=== PATIENT | male | born 1950 | race Caucasian/White ===

== ENCOUNTER 2022-03-08 22:07 | Inpatient (IN) | payer MEDICARE, OTHER ==
[~2022-03-08] VITALS: Ht 175.3 cm; Wt 66.2 kg
--- NOTE | 2022-03-08 22:15 | NUR ---
[id number] FROM HOME C/O GLF WHILE BENDING OVER TO INVENTORY MANAGEMENT SPECIALIST DOG, -KO C/O ARIAN KNEE PAIN . PT AOX3. TOLERATING R/A WELL WITH NO RESP DISTRESS. SAFETY MEASURES IN PLACE. 1:1 SITTER AT PT'S BEDSIDE.
--- NOTE | 2022-03-08 23:01 | NUR ---
BS 118
[2022-03-08 23:04] LABS: BASOPHILS % (AUTO) 0.4 % (0.0-2.0); EOSINOPHILS % (AUTO) 0.6 % (0.0-6.0); HEMATOCRIT 39 % (39-51); HEMOGLOBIN 12.7 g/dL (13.5-17.5); LYMPHOCYTES # (AUTO) 0.4 K/uL (0.8-4.8); MEAN CORPUSCULAR HGB CONC 33 g/dl (31.0-36.0); MEAN CORPUSCULAR VOLUME 92 fL (80-96); MONOCYTES # (AUTO) 0.8 K/uL (0.1-1.30); MONOCYTES % (AUTO) 9.2 % (2.0-12.0); NEUTROPHILS # (AUTO) 7.4 K/uL (1.8-8.9); NEUTROPHILS % (AUTO) 84.8 % (43.0-81.0); PLATELET COUNT (AUTO) 216 K/uL (150-450); RED BLOOD CELL COUNT(AUTO) 4.26 MIL/uL (4.5-6.0); WHITE BLOOD COUNT (AUTO) 8.7 K/uL (4.3-11.0)
--- NOTE | 2022-03-08 23:04 | NUR ---
PT TAKEN TO CT VIA KYLE
[2022-03-08 23:17] LABS: CALCIUM, SERUM 8.5 mg/dL (8.5-10.1); CARBON DIOXIDE 24 mmol/L (21-32); CHLORIDE 109 mmol/L (98-107); CREATININE 1.8 mg/dL (0.6-1.3); GLUCOSE 114 mg/dL (74-106); POTASSIUM 3.5 mmol/L (3.5-5.1); SODIUM SERUM 143 mmol/L (136-145); UREA NITROGEN, BLOOD 17 mg/dL (7-18)
--- NOTE | 2022-03-08 23:25 | NUR ---
PT RETURNED TO ER BED [address]
--- NOTE | 2022-03-08 23:57 | NUR ---
IV ESTABLISHED LAC #18G S/L
--- NOTE | 2022-03-09 | NUR ---
COVID AND MRSA SWAB COLLECTED AND SENT TO LAB
--- NOTE | 2022-03-09 00:06 | NUR ---
URINE COLLECTED AND SENT TO LAB
[2022-03-09 00:26] LABS: BILIRUBIN,URINE SMALL (NEGATIVE); COLOR,URINE YELLOW (YELLOW); LEUKOCYTE ESTERASE ,URINE NEGATIVE (NEGATIVE); NITRITE, URINE NEGATIVE (NEGATIVE); PROTEIN,URINE 30 mg/dl (NEGATIVE); UGLUCOSE >=1000 mg/dL (NEGATIVE)
--- NOTE | 2022-03-09 02:06 | NUR ---
EPIC PANEL PAGED
[2022-03-09] MEDS ORDERED: FUROSEMIDE 40 MG/4 ML VIAL IV ONE (02:30)
[2022-03-09] MEDS ORDERED: FUROSEMIDE 40 MG/4 ML VIAL ONE (02:33)
--- NOTE | 2022-03-09 04:30 | NUR ---
300ML YELLOW URINE OUTPUT VIA URINAL
--- NOTE | 2022-03-09 07:20 | NUR ---
RECIVED PT FROM ERIKA VALVERDE PT AWAKE AND ALERT WATING FOR telmetry bed
[2022-03-09] MEDS ORDERED: ONDANSETRON HCL/PF 4 MG/2 ML VIAL IVP PRN (07:30)
[2022-03-09] MEDS ORDERED: ACETAMINOPHEN 325 MG TABLET PO PRN (07:30)
[2022-03-09 08:19] LABS: CALCIUM, SERUM 8.4 mg/dL (8.5-10.1); CREATININE 1.7 mg/dL (0.6-1.3); POTASSIUM 3.2 mmol/L (3.5-5.1)
--- NOTE | 2022-03-09 08:39 | NUR ---
LAB CALLED ELTON LARKIN RN AWARE
--- NOTE | 2022-03-09 10:31 | NUR ---
Resting and asleepy now no sob at this time
--- NOTE | 2022-03-09 11:00 | NUR ---
CALLED (RETA SNELL ) [phone]
[2022-03-09] MEDS ORDERED: AMIO200T5 PO (11:30)
[2022-03-09] MEDS ORDERED: BUPR-54 PO (11:30)
[2022-03-09] MEDS ORDERED: TAMS-12 PO (11:30)
[2022-03-09] MEDS ORDERED: VALS40TA12 PO (11:30)
[2022-03-09] MEDS ORDERED: DIGO125T PO (11:30)
[2022-03-09] MEDS ORDERED: DAPA10TA PO (11:30)
[2022-03-09] MEDS ORDERED: SACU1TAB MT (11:30)
[2022-03-09] MEDS ORDERED: ATOR40TA PO (11:30)
[2022-03-09] MEDS ORDERED: WARF4TAB72 PO (11:30)
[2022-03-09] MEDS ORDERED: FURO40TA5 PO (11:30)
[2022-03-09] MEDS ORDERED: MIRT45TA83 PO (11:30)
[2022-03-09] MEDS ORDERED: CARV3.122 PO (11:30)
[2022-03-09] MEDS ORDERED: OLAN10TA3 PO (11:30)
[2022-03-09] MEDS ORDERED: LEVO112T7 PO (11:30)
[2022-03-09] MEDS ORDERED: MECL-159 PO (11:30)
[2022-03-09] MEDS: POTASSIUM CHLORIDE 10 MEQ TABLET.SA PO SCH ×3 (11:39→14:02)
[2022-03-09] MEDS ORDERED: POTASSIUM CHLORIDE 10 MEQ TABLET.SA ONE ×3 (11:39→14:01)
--- NOTE | 2022-03-09 12:20 | NUR ---
ECCHO CARDIOGAM DONE AT BED SIDE TOLORATED PROCEDURE WILL
--- NOTE | 2022-03-09 12:55 | NUR ---
CALLED PT WITH [facility] FOR RSV
--- NOTE | 2022-03-09 13:48 | NUR ---
RM 328-1
--- NOTE | 2022-03-09 14:35 | NUR ---
HAND OFF GENA Poon RN TO ROOM 328 - 1
--- NOTE | 2022-03-09 14:55 | NUR ---
LOCOMOTIVE OPERATOR HELPER ADMISSION NOTE RECEIVED PATIENT IN ROOM 304-2 FROM ER. PT ADMITTED WITH DIAGNOSTIC OF NSTEMI. PT A/O X 4, ABLE TO MAKE NEEDS KNOWN. ABLE TO AMBULATE TO BATHROOM WITH ASSIST. NO S/S OF RESPIRATORY DISTRESS NOTED. RESPIRATIONS EVEN, AND UNLABORED. NO C/O PAIN OR DISCOMFORT. VS STABLE. PT HAS IV ACCESS TO LEFT AC 18G, IV ACCESS PATENT. ADMISSION COMPLETED. WILL CONTINUE TO MONITOR PT.
--- NOTE | 2022-03-09 14:55 | NUR ---
DENTAL ASSISTING INSTRUCTOR NOTES RECEIVED PT FROM E.R. STAFF VIA [facility], PT IS AWAKE, ALERT AND ORIENTED, NO COMPLAINT OF PAIN, NOT IN DISTRESS, ABLE TO WALK FROM [facility] TO BED WITH SLOW AND STEADY GAIT, ROOM SET UP ORIENTATION PROVIDED TO PT, VERBALIZED UNDERSTANDING, CALL LIGHT PLACED WITHIN REACH, ADMITTING ORDERS RECEIVED FROM MD, VITALS TAKEN AND RECORDED, KEPT WARM AND COMFORTABLE.
[2022-03-09] MEDS ORDERED: POTASSIUM CHLORIDE 20 MEQ TAB.PRT.SR PO ONE (15:00)
[2022-03-09 16:00] VITALS: BP 92/60
[2022-03-09] MEDS: IV NS 0.9% 1,000 ML IV PRN (18:13)
--- NOTE | 2022-03-09 18:57 | NUR ---
PROJ MGR CLOSING NOTE LEFT PATIENT SLEEPING IN BED. PT A/O X 4, ABLE TO MAKE NEEDS KNOWN. NO S/S OF RESPIRATORY DISTRESS SEEN. RESPIRATIONS EVEN, AND UNLABORED. NO C/O PAIN OR DISCOMFORT AT THIS TIME. VS STABLE. IV ACCESS TO LEFT AC 18G RUNNING NS AT 75 ML/HR, IV ACCESS PATENT, NO S/S OF INFILTRATION, OR INFECTION AT IV SITE. PT ON TELE MONITOR SR. BED IN LOW POSITION, CALL LIGHT WITHIN REACH. WILL ENDORSE PT'S CARE TO ONCOMING NURSE.
--- NOTE | 2022-03-09 19:30 | NUR ---
POLYSTYRENE BEAD MOLDER OPENING NOTE PATIENT SLEEPING IN BED, EASILY AWAKENED, ALERT/ORIENTED X 4, PT ABLE TO MAKE NEEDS KNOWN. PT STABLE ON RA, NO S/S OF DISTRESS OR SOB NOTED, BREATHING EVEN AND UNLABORED. IV ACCESS ON LAC #18G INTACT AND INFUSING NS @ 75 ML/HR. SAFETY MEASURES IN PLACE: CALL LIGHT WITHIN REACH, SIDE RAILS UP X 2, BED LOCKED IN LOWEST POSITION, BED ALARM ON. WILL CONTINUE TO MONITOR PATIENT Addendum: 03/09/22 at 2054 by NATHALY SHAW RN PATIENT ON EXTERNAL MOLD CONSTRUCTION SUPERVISOR READING V-PACING, HR: 60
[2022-03-09 20:00] VITALS: BP 96/56
[2022-03-10 00:05] VITALS: BP 102/55
[2022-03-10 06:25] VITALS: BP 99/50
[2022-03-10 06:25] LABS: CALCIUM, SERUM 8.2 mg/dL (8.5-10.1); CREATININE 1.7 mg/dL (0.6-1.3); MAGNESIUM 2.2 mg/dL (1.8-2.4); PHOSPHORUS 2.6 mg/dL (2.5-4.9); POTASSIUM 3.3 mmol/L (3.5-5.1)
--- NOTE | 2022-03-10 06:29 | NUR ---
KEYLINER CLOSING NOTE PATIENT SLEEPING IN BED, EASILY AWAKENED, ALERT/ORIENTED X 4, PT ABLE TO MAKE NEEDS KNOWN, PT VERY SLEEPY THROUGHOUT SHIFT. PT STABLE ON RA, NO S/S OF DISTRESS OR SOB NOTED, BREATHING EVEN AND UNLABORED. PATIENT ON EXTERNAL SHREDDING MACHINE KNIFE CHANGER READING AV PACING, HR: 64. IV ACCESS ON LAC #18G INTACT AND INFUSING NS @ 75 ML/HR. PATIENT NEEDS MET THROUGHOUT SHIFT. SAFETY MEASURES IN PLACE: CALL LIGHT WITHIN REACH, SIDE RAILS UP X 2, BED LOCKED IN LOWEST POSITION, BED ALARM ON. WILL ENDORSE TO DAYSHIFT NURSE FOR CONTINUITY OF CARE
[2022-03-10 07:12] LABS: BASOPHILS % (AUTO) 0.6 % (0.0-2.0); EOSINOPHILS % (AUTO) 3.3 % (0.0-6.0); HEMATOCRIT 35 % (39-51); HEMOGLOBIN 11.6 g/dL (13.5-17.5); LYMPHOCYTES # (AUTO) 1.1 K/uL (0.8-4.8); LYMPHOCYTES % (AUTO) 15.8 % (20.0-44.0); MEAN CORPUSCULAR HGB CONC 33 g/dl (31.0-36.0); MEAN CORPUSCULAR VOLUME 92 fL (80-96); MONOCYTES # (AUTO) 0.9 K/uL (0.1-1.30); NEUTROPHILS # (AUTO) 4.4 K/uL (1.8-8.9); NEUTROPHILS % (AUTO) 66.3 % (43.0-81.0); PLATELET COUNT (AUTO) 185 K/uL (150-450); RED BLOOD CELL COUNT(AUTO) 3.84 MIL/uL (4.5-6.0); WHITE BLOOD COUNT (AUTO) 6.7 K/uL (4.3-11.0)
[2022-03-10] MEDS: IV NS 0.9% 1,000 ML IV PRN (07:12)
--- NOTE | 2022-03-10 07:25 | NUR ---
RN OPENING NOTE RECEIVED PT IN BED AWAKE AND ALERT. A.OX4. CALM AND COOPERATIVE. NO SIGNS OF RESPIRATORY DISTRESS OR SOB NOTED. SATURATING WELL ON RA. TELE READING AV-PACING AT 60. LAC 18 G DISLODGED. NEW IV TO BE INSERTED. SAFETY MEASURES: BED LOCKED AND IN LOWEST POSITION, CALL LIGHT WITHIN REACH. WILL CONTINUE TO MONITOR.
[2022-03-10] MEDS ORDERED: POTASSIUM CHLORIDE 20 MEQ TAB.PRT.SR PO ONE (08:30)
--- NOTE | 2022-03-10 08:30 | NUR ---
RN NOTE IV IN LEFT AC DISLODGED. NEW IV INSERTED IN RIGHT FA 20G INTACT AND PATENT.
[2022-03-10] MEDS ORDERED: AMIO200T5 PO (13:02)
[2022-03-10 14:17] LABS: T4 (THYROXINE) 9.7 ug/dL (4.7-13.3); THYROID STIMULATING HORMONE 2.278 uIU/mL (0.358-3.74)
--- NOTE | 2022-03-10 16:27 | NUR ---
RN NOTE PT IS NOW DISCHARGED. TRANSPORTED TO HOME BY [facility]. CONDITION AT THE TIME OF DISCHARGE: STABLE. NO SIGNS OF RESPIRATORY DISTRESS OR SOB NOTED. DISCHARGE INSTRUCTIONS AND EDUCATION GIVEN. SIGNED AND DATED. PT VERBALIZED UNDERSTANDING OF CONTACTING PCP ONE WEEK AFTER DISCHARGE. IV REMOVED AND TELE BOX RETURNED TO STATION. PT STABLE.
== END 2022-03-10 16:30 | disposition home or self-care (01) | DRG 682 ==
LOC: ER 22:12 → TRANSITION 03-09 03:38 → MED 03-09 13:54 → TELE 03-09 14:56
PROVIDERS: ADMIT Nurse Practitioner Acute Care; ATTEND Nurse Practitioner Acute Care
DX: N17.0 Acute kidney failure with tubular necrosis (principal); I21.A1 Myocardial infarction type 2; I50.22 Chronic systolic (congestive) heart failure; Z95.3 Presence of xenogenic heart valve; I50.9 Heart failure, unspecified; Y92.009 Unspecified place in unspecified non-institutional (private) residence as the place of occurrence of the external cause; W18.30XA Fall on same level, unspecified, initial encounter; Z79.01 Long term (current) use of anticoagulants; Z95.810 Presence of automatic (implantable) cardiac defibrillator; Z95.1 Presence of aortocoronary bypass graft; J44.9 Chronic obstructive pulmonary disease, unspecified; I25.5 Ischemic cardiomyopathy; E87.6 Hypokalemia; D63.8 Anemia in other chronic diseases classified elsewhere; N18.9 Chronic kidney disease, unspecified
CPT/HCPCS: 36415; 70450-TC; 71045-TC; 72125-TC; 73564-TC; 80048-TC; 82962-TC; 83735-TC; 83880; 84100-TC; 84436-TC; 84443-TC; 84484-TC; 85025-TC; 85730-TC; 87081-TC; 93307-TC; 97116-TC; 97530-TC; C9803; G0378; J1940; J7030

== ENCOUNTER 2022-10-22 23:23 | Inpatient (IN) | payer MEDICARE, OTHER ==
[~2022-10-22] VITALS: Ht 175.3 cm; Wt 66.2 kg
[~2022-10-22 23:23] MED LIST: AMIO200T5 PO; ATOR40TA PO; BUPR-54 PO; CARV3.122 PO; DIGO125T PO; FURO40TA5 PO; LEVO112T7 PO; MECL-159 PO; MIRT45TA83 PO; OLAN10TA3 PO; SACU1TAB MT; TAMS-12 PO; WARF4TAB72 PO
[2022-10-22] MEDS ORDERED: IPRATROPIUM NEB FS 0.5 MG/2.5 ML AMPUL.NEB NEB ONE (23:30)
[2022-10-22] MEDS ORDERED: ALBUTEROL FS 2.5 MG/3 ML VIAL.NEB NEB ONE (23:30)
[2022-10-22] MEDS ORDERED: predniSONE 20 MG TABLET PO ONE (23:30)
--- NOTE | 2022-10-22 23:40 | NUR ---
BIB 90 FROM HOME WITH CC OF SOB, PT IS MAINTAINED ON 2LPM NC OXYGEN EVEN AT HOME. GOT UPSET WITH CG AND EXPERIENCING SOB. AO X 4, BREATHING UNLABORED. PT STATES IT IS HARD TO BREATHE. PT ATTACHED TO MONITOR AND PULSE OX. AWAITING MD ANDERS
[2022-10-22] MEDS ORDERED: predniSONE 20 MG TABLET ONE (23:42)
--- NOTE | 2022-10-22 23:45 | NUR ---
RT AT BEDSIDE
[2022-10-22] MEDS ORDERED: ALBUTEROL FS 2.5 MG/3 ML VIAL.NEB ONE (23:50)
[2022-10-22] MEDS ORDERED: IPRATROPIUM NEB FS 0.5 MG/2.5 ML AMPUL.NEB ONE (23:50)
[2022-10-23 00:01] LABS: HEMATOCRIT 36 % (39-51); HEMOGLOBIN 11.5 g/dL (13.5-17.5); WHITE BLOOD COUNT (AUTO) 8.1 K/uL (4.3-11.0)
[2022-10-23 00:11] LABS: BASOPHILS # (AUTO) 0.1 K/uL (0.0-0.2); BASOPHILS % (AUTO) 0.9 % (0.0-2.0); EOSINOPHILS % (AUTO) 3.6 % (0.0-6.0); LYMPHOCYTES # (AUTO) 1.6 K/uL (0.8-4.8); LYMPHOCYTES % (AUTO) 19.6 % (20.0-44.0); MEAN CORPUSCULAR HGB CONC 32 g/dl (31.0-36.0); MEAN CORPUSCULAR VOLUME 89 fL (80-96); MONOCYTES # (AUTO) 0.9 K/uL (0.1-1.30); MONOCYTES % (AUTO) 11.5 % (2.0-12.0); NEUTROPHILS # (AUTO) 5.2 K/uL (1.8-8.9); NEUTROPHILS % (AUTO) 64.4 % (43.0-81.0); PLATELET COUNT (AUTO) 298 K/uL (150-450); RED BLOOD CELL COUNT(AUTO) 3.97 MIL/uL (4.5-6.0)
[2022-10-23 00:20] LABS: CALCIUM, SERUM 8.6 mg/dL (8.5-10.1); CARBON DIOXIDE 23 mmol/L (21-32); CHLORIDE 110 mmol/L (98-107); CREATININE 1.6 mg/dL (0.6-1.3); GLUCOSE 101 mg/dL (74-106); POTASSIUM 4.1 mmol/L (3.5-5.1); SODIUM SERUM 142 mmol/L (136-145); UREA NITROGEN, BLOOD 24 mg/dL (7-18)
--- NOTE | 2022-10-23 00:20 | NUR ---
/ANISH [phone]
[2022-10-23] MEDS ORDERED: ASPIRIN 81 MG TAB.CHEW PO ONE (01:00)
[2022-10-23] MEDS ORDERED: FUROSEMIDE 40 MG/4 ML VIAL IV ONE (01:00)
[2022-10-23] MEDS ORDERED: ASPIRIN 81 MG TAB.CHEW ONE (01:23)
[2022-10-23] MEDS ORDERED: FUROSEMIDE 40 MG/4 ML VIAL ONE (01:23)
--- NOTE | 2022-10-23 02:31 | NUR ---
covid swab collected, sent to lab
[2022-10-23] MEDS ORDERED: ONDANSETRON HCL/PF 4 MG/2 ML VIAL IVP PRN (04:00)
[2022-10-23] MEDS ORDERED: ACETAMINOPHEN 325 MG TABLET PO PRN (04:00)
[2022-10-23 04:36] LABS: BASOPHILS # (AUTO) 0.1 K/uL (0.0-0.2); BASOPHILS % (AUTO) 1.5 % (0.0-2.0); EOSINOPHILS % (AUTO) 0.2 % (0.0-6.0); HEMATOCRIT 35 % (39-51); HEMOGLOBIN 11.2 g/dL (13.5-17.5); LYMPHOCYTES # (AUTO) 0.4 K/uL (0.8-4.8); LYMPHOCYTES % (AUTO) 5.5 % (20.0-44.0); MEAN CORPUSCULAR HGB CONC 33 g/dl (31.0-36.0); MEAN CORPUSCULAR VOLUME 89 fL (80-96); MONOCYTES # (AUTO) 0.1 K/uL (0.1-1.30); MONOCYTES % (AUTO) 1.3 % (2.0-12.0); NEUTROPHILS # (AUTO) 7.4 K/uL (1.8-8.9); NEUTROPHILS % (AUTO) 91.5 % (43.0-81.0); PLATELET COUNT (AUTO) 273 K/uL (150-450); RED BLOOD CELL COUNT(AUTO) 3.86 MIL/uL (4.5-6.0); WHITE BLOOD COUNT (AUTO) 8.1 K/uL (4.3-11.0)
[2022-10-23 04:45] LABS: CALCIUM, SERUM 8.7 mg/dL (8.5-10.1); CARBON DIOXIDE 21 mmol/L (21-32); CHLORIDE 107 mmol/L (98-107); CREATININE 1.7 mg/dL (0.6-1.3); GLUCOSE 136 mg/dL (74-106); MAGNESIUM 2.2 mg/dL (1.8-2.4); PHOSPHORUS 3.4 mg/dL (2.5-4.9); POTASSIUM 3.7 mmol/L (3.5-5.1); SODIUM SERUM 140 mmol/L (136-145); UREA NITROGEN, BLOOD 25 mg/dL (7-18)
[2022-10-23 04:49] LABS: CHOLESTEROL 192 mg/dL (<200); HDL CHOLESTEROL 52 mg/dL (40-60); LDL 137 mg/dL (0-99); TRIGLYCERIDES 75 mg/dL (30-150)
--- NOTE | 2022-10-23 05:00 | NUR ---
RECEIVED A CALL FROM HI (LAB) PT TROP 125. MADE AWARE
--- NOTE | 2022-10-23 08:18 | NUR ---
PT ENDORSED AND GIVEN REPORT TO FRANCK VALVERDE FOR CONTINUATION OF CARE.
--- NOTE | 2022-10-23 08:45 | NUR ---
moved to inpatient room safely per acls protocol
--- NOTE | 2022-10-23 08:45 | NUR ---
Patient transferred ot 324-1, all care endorsed to NICOLLE Smith
[2022-10-23] MEDS ORDERED: ENOXAPARIN SODIUM 40 MG/0.4 ML DISP.SYRIN SQ SCH (09:00)
[2022-10-23] MEDS ORDERED: DAPA10TA PO (09:42)
[2022-10-23] MEDS ORDERED: FURO-144 PO (09:42)
[2022-10-23] MEDS ORDERED: AMIO200T5 PO (09:42)
[2022-10-23] MEDS ORDERED: LOSA50TA3 PO (09:42)
[2022-10-23] MEDS ORDERED: MULT-447 PO (09:42)
[2022-10-23] MEDS ORDERED: FINA5TAB11 PO (09:42)
[2022-10-23 10:55] VITALS: BP 116/72
[2022-10-23 11:25] VITALS: BP 88/46
[2022-10-23] MEDS ORDERED: MECLIZINE HCL 25 MG TABLET PO PRN (15:00)
[2022-10-23 15:48] VITALS: BP 94/48
[2022-10-23] MEDS: AMIODARONE HCL 200 MG TABLET PO SCH (17:00)
[2022-10-23] MEDS ORDERED: WARFARIN SODIUM 5 MG PO SCH (17:00)
[2022-10-23] MEDS: ATORVASTATIN 40 MG TABLET PO SCH (17:30)
[2022-10-23] MEDS ORDERED: FUROSEMIDE 20 MG/2 ML VIAL IV SCH (17:30)
[2022-10-23] MEDS: OLANZAPINE 10 MG TABLET PO SCH (17:30)
--- NOTE | 2022-10-23 17:31 | NUR ---
HELD AMIODARIONE. BP 94/48
--- NOTE | 2022-10-23 17:32 | NUR ---
PER PT HIS EX IS ABLE TO BRING HIS HOME MED FARXIGA 10 MG TODAY.
[2022-10-23] MEDS ORDERED: DEXTROSE 50%-WATER 50 ML DISP.SYRIN IV PRN (18:00)
--- NOTE | 2022-10-23 18:26 | NUR ---
END OF SHIFT SUMMARY PATIENT IS A/O X4. AMBULATORY WITH ASSIST. ABLE TO MAKE NEEDS KNOWN. IV ACCESS ON L AC #20G. INDEPENDENT WITH REPOSITIONING. PATIENT IS TOLERATING DIET WELL. SOCIAL SERVICE HAS BEEN CONSULTED. SAFETY MEASURES MAINTAINED. BED IN LOWEST POSITION, BRAKES LOCKED. SIDE RAILS UP X2. CALL LIGHT WITHIN REACH. WILL ENDORSE CONTINUITY OF CARE TO ONCOMING SHIFT.
[2022-10-23] MEDS: CEFTRIAXONE 1 G in IV D5W 50 ML IV SCH (18:42)
--- NOTE | 2022-10-23 19:30 | NUR ---
FOREIGN LAW CONSULTANT OPENING NOTES RECEIVED PT RESTING IN BED, EASILY AROUSABLE. A/O X4, ABLE TO MAKE NEEDS KNOWN, AMBULATORY WITH ASSIST. ON O2 2L VIA NC WITH NO S/S OF SOB OR DISTRESS. IV ACCESS ON LAC #20G SL, PATENT, INTACT, FLUSHING WELL. SAFETY MEASURES IN PLACE: BED LOCKED AND IN LOWEST POSITION, SIDE RAILS UP X3, BED ALARM ON, CALL LIGHT AND TRAY TABLE WITHIN REACH. WILL CONTINUE TO MONITOR AND ASSIST. Addendum: 10/23/22 at 195 by BARTOLO DEL TORO RN ON TELE MONITOR SHOWING SR A-PACING, 60 HR.
--- NOTE | 2022-10-23 19:47 | NUR ---
RN NOTE CRITICAL LAB REPORT: TROPONIN 96. TEE VALERIO NOTIFIED, NO NEW ORDERS.
[2022-10-23 20:00] VITALS: BP 100/55
[2022-10-23] MEDS: IPRATROPIUM NEB FS 0.5 MG/2.5 ML AMPUL.NEB NEB SCH (20:16)
[2022-10-23] MEDS: ALBUTEROL HALF STRENGTH 1.25 MG/3 ML VIAL.NEB NEB SCH (20:17)
--- NOTE | 2022-10-23 22:10 | NUR ---
RN NOTE PT VERBALIZED THAT HE ONLY WANTS MEDICAL INFORMATION TO BE GIVEN TO HIS EX (ANISH, ) AND NOBODY ELSE, ESPECIALLY NOT TO ROXANN.
[2022-10-23] MEDS: INSULIN REGULAR, HUMAN 100 UNIT/ML 3 ML VIAL SQ PRN (22:22)
[2022-10-23] MEDS: BLOOD SUGAR DIAGNOSTIC 1 EACH STRIP IN SCH (22:22)
[2022-10-23] MEDS: MIRTAZAPINE 45 MG TABLET PO SCH (22:22)
[2022-10-24] VITALS: BP 102/55
[2022-10-24] MEDS: IPRATROPIUM NEB FS 0.5 MG/2.5 ML AMPUL.NEB NEB SCH ×4 (02:22→19:42)
[2022-10-24] MEDS: ALBUTEROL HALF STRENGTH 1.25 MG/3 ML VIAL.NEB NEB SCH ×4 (02:22→19:42)
[2022-10-24 04:00] VITALS: BP 96/47
--- NOTE | 2022-10-24 04:17 | NUR ---
RN NOTE CRITICAL LAB REPORT: TROPONIN 111. TEE VALERIO NOTIFIED, AWAITING ORDERS.
[2022-10-24 04:32] LABS: BILIRUBIN,URINE NEGATIVE (NEGATIVE); COLOR,URINE YELLOW (YELLOW); LEUKOCYTE ESTERASE ,URINE NEGATIVE (NEGATIVE); NITRITE, URINE NEGATIVE (NEGATIVE); PROTEIN,URINE TRACE mg/dl (NEGATIVE); UGLUCOSE 3+ mg/dL (NEGATIVE)
[2022-10-24 04:38] LABS: BACTERIA,URINE Rare /HPF (None Seen); RBC,URINE 0-2 /HPF (0-2); SQUAMOUS EPITHELIAL CELL,UR Few /HPF (None Seen); WBC,URINE 0-2 /HPF (0-3)
[2022-10-24 06:19] LABS: BASOPHILS # (AUTO) 0.1 K/uL (0.0-0.2); BASOPHILS % (AUTO) 0.7 % (0.0-2.0); EOSINOPHILS % (AUTO) 1.8 % (0.0-6.0); HEMATOCRIT 31 % (39-51); HEMOGLOBIN 10.1 g/dL (13.5-17.5); LYMPHOCYTES # (AUTO) 1.5 K/uL (0.8-4.8); LYMPHOCYTES % (AUTO) 18.6 % (20.0-44.0); MEAN CORPUSCULAR HGB CONC 33 g/dl (31.0-36.0); MEAN CORPUSCULAR VOLUME 88 fL (80-96); MONOCYTES # (AUTO) 0.7 K/uL (0.1-1.30); MONOCYTES % (AUTO) 8.2 % (2.0-12.0); NEUTROPHILS # (AUTO) 5.7 K/uL (1.8-8.9); NEUTROPHILS % (AUTO) 70.7 % (43.0-81.0); PLATELET COUNT (AUTO) 257 K/uL (150-450); RED BLOOD CELL COUNT(AUTO) 3.52 MIL/uL (4.5-6.0)
[2022-10-24] MEDS: BLOOD SUGAR DIAGNOSTIC 1 EACH STRIP IN SCH ×3 (06:30→17:09)
[2022-10-24] MEDS: INSULIN REGULAR, HUMAN 100 UNIT/ML 3 ML VIAL SQ PRN (06:30)
--- NOTE | 2022-10-24 06:57 | NUR ---
ROUTE SALES DELIVERY DRIVERS SUPERVISOR CLOSING NOTES PT RESTING IN BED, EASILY AROUSED. A/O X4, ABLE TO MAKE NEEDS KNOWN, AMBULATORY WITH ASSIST. STABLE ON O2 2L VIA NC WITH NO S/S OF SOB OR DISTRESS.ON TELE MONITOR SHOWING V-PACING WITH BBB, 60 HR. IV ACCESS ON LAC #20G SL, PATENT, INTACT, FLUSHING WELL. ALL CARE PROVIDED AND MEDS TOLERATED WELL. SAFETY MEASURES MAINTAINED: BED LOCKED AND IN LOWEST POSITION, SIDE RAILS UP X3, BED ALARM ON, CALL LIGHT AND TRAY TABLE WITHIN REACH. WILL ENDORSE MARGARITO TO DAY SHIFT NURSE.
[2022-10-24 07:00] VITALS: BP 129/65
[2022-10-24 07:05] LABS: CALCIUM, SERUM 8.6 mg/dL (8.5-10.1); CARBON DIOXIDE 23 mmol/L (21-32); CHLORIDE 109 mmol/L (98-107); CREATININE 1.8 mg/dL (0.6-1.3); GLUCOSE 102 mg/dL (74-106); POTASSIUM 3.6 mmol/L (3.5-5.1); SODIUM SERUM 141 mmol/L (136-145); UREA NITROGEN, BLOOD 29 mg/dL (7-18)
--- NOTE | 2022-10-24 07:20 | NUR ---
MOLECULAR BIOLOGY DIRECTOR OPENING NOTES RECEIVED PT ASLEEP IN BED, EASY AROUSABLE. A/O X4, ABLE TO MAKE NEEDS KNOWN. ON O2 INHALATION AT 2L VIA NC, TOLERATING WELL AND SATURATING AT 96%. NO SOB NOTED, BREATHING EVEN AND UNLABORED. NO SIGNS OF ACUTE DISTRESS NOTED. DENIES ANY PAIN AT THIS TIME. ON TELE MONITORING READING VPACING WITH BBB, HR:62. WITH IV ACCESS ON LAC #20G-SALINE LOCKED. SAFETY MEASURES IN PLACE: BED IN LOW AND LOCKED POSITION; SIDE RAILS UP X2, CALL LIGHT WITHIN REACH. WILL CONTINUE TO MONITOR THE PATIENT.
[2022-10-24] MEDS: LEVOTHYROXINE SODIUM 112 MCG TABLET PO SCH (08:15)
[2022-10-24] MEDS: CARVEDILOL 3.125 MG TABLET PO SCH (08:43)
[2022-10-24] MEDS: MULTIVIT W/MINERALS 1 TAB TABLET PO SCH (08:43)
[2022-10-24] MEDS: FINASTERIDE (5 MG) 5 MG TABLET PO SCH (08:43)
[2022-10-24] MEDS: TAMSULOSIN 0.4 MG CAP.SR.24H PO SCH (08:44)
[2022-10-24] MEDS: DIGOXIN 0.125 MG TABLET PO SCH (08:44)
[2022-10-24] MEDS: AMIODARONE HCL 200 MG TABLET PO SCH ×2 (08:44→18:34)
[2022-10-24] MEDS: BUPROPION XL 150 MG TAB.ER.24 PO SCH (08:44)
[2022-10-24] MEDS: DAPAGLIFLOZIN PROPANEDIOL 10 MG PO SCH (08:51)
[2022-10-24] MEDS ORDERED: LOSARTAN POTASSIUM 50 MG TABLET PO SCH (09:00)
[2022-10-24] MEDS: FUROSEMIDE 100 MG/10 ML VIAL IV SCH ×3 (10:41→17:57)
[2022-10-24] MEDS: POTASSIUM CHLORIDE 20 MEQ TAB.PRT.SR PO SCH ×3 (10:42→14:16)
[2022-10-24] MEDS: ENOXAPARIN SODIUM 60 MG/0.6 ML DISP.SYRIN SQ SCH ×2 (10:46→22:26)
[2022-10-24 10:56] LABS: THYROID STIMULATING HORMONE 2.123 uIU/mL (0.358-3.74)
--- NOTE | 2022-10-24 11:23 | NUR ---
PREFITTER DOORS NOTE [employer] NURSE CHECKED PATIENT'S ICD AND SAID IT IS WORKING FINE AND THAT NO ADJUSTMENT NEEDED AND THAT SHE WEILL SEND RESULTS TO DR. PELAYO
--- NOTE | 2022-10-24 11:30 | NUR ---
BIOLOGICS SPECIALIST SEEN BY HOSPITALIST DELFIN ROBLES.
[2022-10-24 12:21] VITALS: BP 114/60
[2022-10-24] MEDS ORDERED: POTASSIUM CHLORIDE 20 MEQ TAB.PRT.SR PO SCH (14:00)
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
--- NOTE | 2022-10-24 17:55 | NUR ---
UPPER MARKER PATIENT'S BLOOD PRESSURE IS 89/56. HOLD FUROSEMIDE(LASIX) PER HOSPITALIST DELFIN ROBLES.
[2022-10-24] MEDS: CEFTRIAXONE 1 G in IV D5W 50 ML IV SCH (18:02)
[2022-10-24] MEDS: OLANZAPINE 10 MG TABLET PO SCH (18:02)
[2022-10-24] MEDS: ATORVASTATIN 40 MG TABLET PO SCH (18:03)
[2022-10-24] MEDS: WARFARIN SODIUM 2.5 MG TABLET PO SCH (18:37)
[2022-10-24] MEDS: WARFARIN SODIUM 1 MG TABLET PO SCH (18:38)
[2022-10-24] MEDS: WARFARIN SODIUM 2 MG TABLET PO SCH (18:39)
--- NOTE | 2022-10-24 19:09 | NUR ---
[employer] SALES REPRESENTATIVE CLOSING NOTES PATIENT ASLEEP IN BED, EASY AROUSABLE. A/O X4, ABLE TO MAKE NEEDS KNOWN. ON O2 INHALATION AT 2L VIA NC, TOLERATING WELL AND SATURATING AT 94%. NO SOB NOTED, BREATHING EVEN AND UNLABORED. NO SIGNS OF ACUTE DISTRESS NOTED. DENIES ANY PAIN AT THIS TIME. ON TELE MONITORING READING VPACING WITH BBB, HR:77. WITH IV ACCESS ON LAC #20G-SALINE LOCKED, PATENT AND INTACT. ALL DUE MEDS GIVEN. ALL NEEDS ATTENDED. SAFETY MEASURES MAINTAINED; BED IN LOW AND LOCKED POSITION; SIDE RAILS UP X2, CALL LIGHT AND TABLE WITHIN REACH. WILL ENDORSE TO ADVENTURE GUIDE NURSE FOR CONTINUITY OF CARE.
--- NOTE | 2022-10-24 19:15 | NUR ---
RN OPENING NOTE RECEIVED PATIENT ASLEEP IN BED BREATHING EVENLY AND UNLABORED. A/O X4, ABLE TO MAKE NEEDS KNOWN. ON O2 INHALATION AT 2L VIA NC, TOLERATING WELL AND SATURATING AT 94%. NO SOB NOTED. NO SIGNS OF ACUTE DISTRESS NOTED. DENIES ANY PAIN AT THIS TIME. ON TELE MONITORING READING VPACING WITH BBB, HR:75. WITH IV ACCESS ON LAC #20G-SALINE LOCKED, PATENT AND INTACT. SAFETY MEASURES MAINTAINED; BED IN LOW AND LOCKED POSITION; SIDE RAILS UP X2, CALL LIGHT AND TABLE WITHIN REACH.
[2022-10-24 20:00] VITALS: BP 90/53
--- NOTE | 2022-10-24 20:12 | NUR ---
RN NOTE RECEIVED CALL FROM LAB TROPONIN IS 108. TEE VALERIO IS MADE AWARE. NO ORDERS.
--- NOTE | 2022-10-24 22:00 | NUR ---
RN NOTE BLOOD SUGAR CHECKED RESULT IS 85. LANTUS IS GIVEN. PATIENT IS ABLE TO EAT. SNACKS IS GIVEN PATIENT IS EATING
[2022-10-24] MEDS: MIRTAZAPINE 45 MG TABLET PO SCH (22:25)
[2022-10-24 22:26] VITALS: BP 90/53
[2022-10-25] VITALS: BP 106/64
[2022-10-25] MEDS: BLOOD SUGAR DIAGNOSTIC 1 EACH STRIP IN SCH ×5 (00:08→21:35)
[2022-10-25] MEDS: IPRATROPIUM NEB FS 0.5 MG/2.5 ML AMPUL.NEB NEB SCH ×4 (01:25→20:25)
[2022-10-25] MEDS: ALBUTEROL HALF STRENGTH 1.25 MG/3 ML VIAL.NEB NEB SCH ×4 (01:25→20:25)
[2022-10-25 04:00] VITALS: BP 93/52
[2022-10-25 06:19] LABS: ALANINE AMINOTRANSFERASE 27 U/L (12-78); ALBUMIN 3.1 g/dL (3.4-5.0); ALKALINE PHOSPHATASE 75 U/L (46-116); ASPARTATE AMINOTRANSFERASE 20 U/L (15-37); BILIRUBIN,TOTAL 0.4 mg/dL (0.2-1.0); CARBON DIOXIDE 24 mmol/L (21-32); CHLORIDE 105 mmol/L (98-107); GLUCOSE 92 mg/dL (74-106); MAGNESIUM 2.2 mg/dL (1.8-2.4); PHOSPHORUS 4.7 mg/dL (2.5-4.9); POTASSIUM 3.9 mmol/L (3.5-5.1); SODIUM SERUM 139 mmol/L (136-145); TOTAL PROTEIN, SERUM 6.7 g/dL (6.4-8.2); UREA NITROGEN, BLOOD 43 mg/dL (7-18)
--- NOTE | 2022-10-25 06:55 | NUR ---
RN CLOSING NOTE PATIENT ASLEEP IN BED BREATHING EVENLY AND UNLABORED. A/O X4, ABLE TO MAKE NEEDS KNOWN. ON O2 INHALATION AT 2L VIA NC, TOLERATING WELL AND SATURATING AT 98%. NO SOB NOTED. NO SIGNS OF ACUTE DISTRESS NOTED. DENIES ANY PAIN AT THIS TIME. ON TELE MONITORING READING V PACING WITH BBB, HR:75. WITH IV ACCESS ON LAC #20G-SALINE LOCKED, PATENT AND INTACT. ALL DUE MEDICATION IS GIVEN, ALL NEEDS ARE MET. SAFETY MEASURES MAINTAINED; BED IN LOW AND LOCKED POSITION; SIDE RAILS UP X2, CALL LIGHT AND TABLE WITHIN REACH. ENDORSED TO NEXT SHIFT NURSE FOR CONTINUITY OF CARE.
[2022-10-25 07:04] LABS: BASOPHILS # (AUTO) 0.1 K/uL (0.0-0.2); BASOPHILS % (AUTO) 0.7 % (0.0-2.0); EOSINOPHILS % (AUTO) 4.1 % (0.0-6.0); HEMATOCRIT 36 % (39-51); HEMOGLOBIN 11.8 g/dL (13.5-17.5); LYMPHOCYTES # (AUTO) 1.9 K/uL (0.8-4.8); LYMPHOCYTES % (AUTO) 22.9 % (20.0-44.0); MEAN CORPUSCULAR HGB CONC 33 g/dl (31.0-36.0); MEAN CORPUSCULAR VOLUME 89 fL (80-96); MONOCYTES # (AUTO) 0.8 K/uL (0.1-1.30); MONOCYTES % (AUTO) 9.4 % (2.0-12.0); NEUTROPHILS # (AUTO) 5.1 K/uL (1.8-8.9); NEUTROPHILS % (AUTO) 62.9 % (43.0-81.0); PLATELET COUNT (AUTO) 287 K/uL (150-450); RED BLOOD CELL COUNT(AUTO) 4.07 MIL/uL (4.5-6.0); WHITE BLOOD COUNT (AUTO) 8.2 K/uL (4.3-11.0)
--- NOTE | 2022-10-25 07:15 | NUR ---
PUMPER BREWERY OPENING NOTES RECEIVED PT ASLEEP IN BED, EASY AROUSABLE. A/O X4, ABLE TO MAKE NEEDS KNOWN. ON O2 INHALATION AT 2L VIA NC, TOLERATING WELL AND SATURATING AT 98%. NO SOB NOTED, BREATHING EVEN AND UNLABORED. NO SIGNS OF ACUTE DISTRESS NOTED. DENIES ANY PAIN AT THIS TIME. ON TELE MONITORING READING V-PACING WITH BBB, HR:69. WITH IV ACCESS ON LAC #20G-SALINE LOCKED. SAFETY MEASURES IN PLACE: BED IN LOW AND LOCKED POSITION; SIDE RAILS UP X2, CALL LIGHT WITHIN REACH. WILL CONTINUE TO MONITOR THE PATIENT. Addendum: 10/25/22 at 1153 by JENNIFER STEPHEN RN IV ACCESS ON LEFT HAND #22G-SALINE LOCKED.
[2022-10-25 07:30] VITALS: BP 102/72
--- NOTE | 2022-10-25 08:35 | NUR ---
BUFFING TURNER AND COUNTER NOTE SEEN BY DR. PELAYO.
[2022-10-25] MEDS: BUPROPION XL 150 MG TAB.ER.24 PO SCH (08:54)
[2022-10-25] MEDS: LEVOTHYROXINE SODIUM 112 MCG TABLET PO SCH (08:55)
[2022-10-25] MEDS: DIGOXIN 0.125 MG TABLET PO SCH (08:55)
[2022-10-25] MEDS: TAMSULOSIN 0.4 MG CAP.SR.24H PO SCH (08:56)
[2022-10-25] MEDS: CARVEDILOL 3.125 MG TABLET PO SCH (08:56)
[2022-10-25] MEDS: AMIODARONE HCL 200 MG TABLET PO SCH ×2 (08:56→17:26)
[2022-10-25] MEDS: MULTIVIT W/MINERALS 1 TAB TABLET PO SCH (08:56)
[2022-10-25] MEDS: FINASTERIDE (5 MG) 5 MG TABLET PO SCH (08:56)
[2022-10-25] MEDS: DAPAGLIFLOZIN PROPANEDIOL 10 MG PO SCH (08:57)
[2022-10-25] MEDS ORDERED: HEPARIN SODIUM, PORCINE 5000 UNITS/1 ML VIAL IV ONE (10:00)
[2022-10-25] MEDS: HEPARIN INFUSION/D5W 500 ML IV PRN (11:30)
--- NOTE | 2022-10-25 11:45 | NUR ---
FIRE TECHNOLOGY INSTRUCTOR NOTE SEEN BY DR. COWART
[2022-10-25] MEDS: ENSURE ENLIVE CHOC 237 ML CAN PO SCH ×2 (11:56→17:33)
[2022-10-25 12:30] VITALS: BP 89/54
--- NOTE | 2022-10-25 13:32 | NUR ---
APS Contact: ARNULFO received a call from APS Reena ([phone]) who wanted updates on pt's case and discharge. ARNULFO notified case management Gustavo to notify assigned CM.
[2022-10-25 16:00] VITALS: BP 104/68
[2022-10-25] MEDS: ATORVASTATIN 40 MG TABLET PO SCH (17:26)
[2022-10-25] MEDS: OLANZAPINE 10 MG TABLET PO SCH (17:26)
[2022-10-25] MEDS: CEFTRIAXONE 1 G in IV D5W 50 ML IV SCH (17:27)
[2022-10-25] MEDS: WARFARIN SODIUM 2 MG TABLET PO SCH (17:31)
[2022-10-25] MEDS: WARFARIN SODIUM 2.5 MG TABLET PO SCH (17:32)
[2022-10-25] MEDS: WARFARIN SODIUM 1 MG TABLET PO SCH (17:33)
--- NOTE | 2022-10-25 19:00 | NUR ---
RN OPENING NOTE RECEIVED PT AWAKE IN BED. A/O X 4, ABLE TO MAKE NEEDS KNOWN. PT IS IN 2L O2 INHALATION VIA NASAL CANNULA, TOLERATING WELL, BREATHING EVEN AND UNLABORED @ THIS TIME. PT IV PRESENT ON LEFT FOREARM #22 RUNNING HEPARIN @ 975 UNITS/ML/HR, PATENT, INTACT ANF FLUSHES WELL W/ NO S & SX OF INFILTRATION @ SITE NOTED. PT CARDIA MONITOR IS IN PLACE W/ CURRENT READING OF SINUS RHYTHM HR 61BPM. SAFETY MEASURES IS IN PLACE. BED IN LOWEST AND LOCKED POSITION, SIDE RAILS UP X 2. BEDSIDE TABLE AND CALL LIGHT IS WITHIN REACH. BED ALARM IS ON. WILL CONTINUE TO MONITOR PT ACCORDINGLY.
--- NOTE | 2022-10-25 19:13 | NUR ---
DIRECTOR WOMEN CLOSING NOTES PATIENT IN BED, A/O X4, ABLE TO MAKE NEEDS KNOWN. ON O2 INHALATION AT 2L VIA NC, TOLERATING WELL AND SATURATING AT 96%. NO SOB NOTED, BREATHING EVEN AND UNLABORED. NO SIGNS OF ACUTE DISTRESS NOTED. DENIES ANY PAIN AT THIS TIME. ON TELE MONITORING READING SR. WITH IV ACCESS ON LAC #20G- WITH ONGOING HEPARIN DRIP RUNNING AT 975 U/ML, INFUSING WELL. WITH IV ACCESS ON THE RIGHT FOREARM G22, ON SALINE LOCK, PATENT AND INTACT. SAFETY MEASURES IN PLACE: BED IN LOW AND LOCKED POSITION; SIDE RAILS UP X2, CALL LIGHT WITHIN REACH. WILL WILL ENDORSE TO NEXT SHIFT FOR CONTINUITY OF CARE. IN STABLE CONDITION.
[2022-10-25 20:00] VITALS: BP 98/61
[2022-10-25] MEDS: INSULIN REGULAR, HUMAN 100 UNIT/ML 3 ML VIAL SQ PRN (21:36)
--- NOTE | 2022-10-25 21:38 | NUR ---
HELD INSULIN REGULAR D/T PT BLOOD GLUCOSE OF 89.
[2022-10-25] MEDS: MIRTAZAPINE 45 MG TABLET PO SCH (22:37)
[2022-10-26] VITALS (8 sets, daily range): BP systolic 91–104; BP diastolic 55–65
--- NOTE | 2022-10-26 01:33 | NUR ---
FOLLOW UP LAB FOR APTT RESULT. STILL AWAITING FOR THE RESULT. WILL CONTINUE TO MONITOR.
[2022-10-26] MEDS: ALBUTEROL HALF STRENGTH 1.25 MG/3 ML VIAL.NEB NEB SCH ×4 (02:26→20:00)
[2022-10-26] MEDS: IPRATROPIUM NEB FS 0.5 MG/2.5 ML AMPUL.NEB NEB SCH ×4 (02:26→20:00)
[2022-10-26] MEDS: BLOOD SUGAR DIAGNOSTIC 1 EACH STRIP IN SCH ×4 (06:34→22:27)
[2022-10-26] MEDS: INSULIN REGULAR, HUMAN 100 UNIT/ML 3 ML VIAL SQ PRN ×2 (06:35→22:28)
--- NOTE | 2022-10-26 06:35 | NUR ---
HELD INSULIN REGULAR D/T BLOOD GLUCOSE OF 99.
--- NOTE | 2022-10-26 06:38 | NUR ---
RN CLOSING NOTE PT IS AWAKE AND RESTING COMFORTABLY IN BED. PT IS A/O X 4, RESPONSIVE AND FOLLOWS VERBAL COMMAND. PT IS IN 2L O2 INHALATION VIA NASAL CANNULA W/ NO S & SX OF RESPIRATORY DISTRESS @ THIS TIME. PT IV PRESENT ON LEFT FOREARM @22G RUNNING HEPARIN @ 975UNIT/ML/HR & RIGHT FOREARM SALINE LOCK, PATENT, INTACT AND FLUSHES WELL W/ NO S &S X OF INFILTRATION. PT CARDIA MONITOR IN PLACE W/ CURRENT READING OF B PACING HR 67 BPM. PT HAS URINAL @ BEDSIDE. PT IS KEPT CLEAN AND DRY. ADMINISTERED MEDICATION PER MD'S ORDER. SAFETY MEASURES IN PLACE. BED IN LOWEST AND LOCKED POSITION. SIDE RAILS UP X 2. BEDSIDE TABLE AND CALL LIGHT IS EASY REACH.BED ALARM IS ON. WILL ENDORSE TO THE NEXT SHIFT FOR CONTINUITY OF CARE.
--- NOTE | 2022-10-26 07:30 | NUR ---
MS RN OPENING NOTE RECEIVED PT SLEEPING AND RESTING COMFORTABLY IN BED. PT IS A/O X 4, RESPONSIVE AND FOLLOWS VERBAL COMMAND. PT IS IN 2L O2 INHALATION VIA NASAL CANNULA W/ NO S & SX OF RESPIRATORY DISTRESS @ THIS TIME. PT IV PRESENT ON LEFT FOREARM @22G RUNNING HEPARIN @ 975UNIT/ML/HR & RIGHT FOREARM SALINE LOCK, PATENT, INTACT AND FLUSHES WELL W/ NO S &S X OF INFILTRATION. PT CARDIA MONITOR IN PLACE W/ CURRENT READING OF B PACING HR 67 BPM. PT HAS URINAL @ BEDSIDE. PT IS KEPT CLEAN AND DRY. ADMINISTERED MEDICATION PER MD'S ORDER. SAFETY MEASURES IN PLACE. BED IN LOWEST AND LOCKED POSITION. SIDE RAILS UP X 2. BEDSIDE TABLE AND CALL LIGHT IS EASY REACH.BED ALARM IS ON. WILL ADMINSITER SCHEDULED MEDS ORDERED AND CONTINUE TO MONITOR..
[2022-10-26] MEDS: ENSURE ENLIVE CHOC 237 ML CAN PO SCH ×3 (07:59→17:24)
[2022-10-26] MEDS: LEVOTHYROXINE SODIUM 112 MCG TABLET PO SCH (07:59)
[2022-10-26] MEDS: BUPROPION XL 150 MG TAB.ER.24 PO SCH (08:39)
[2022-10-26] MEDS: CARVEDILOL 3.125 MG TABLET PO SCH (08:39)
[2022-10-26] MEDS: AMIODARONE HCL 200 MG TABLET PO SCH ×2 (08:39→17:41)
[2022-10-26] MEDS: TAMSULOSIN 0.4 MG CAP.SR.24H PO SCH (08:39)
[2022-10-26] MEDS: MULTIVIT W/MINERALS 1 TAB TABLET PO SCH (08:39)
[2022-10-26] MEDS: DIGOXIN 0.125 MG TABLET PO SCH (08:39)
[2022-10-26] MEDS: FINASTERIDE (5 MG) 5 MG TABLET PO SCH (08:40)
[2022-10-26] MEDS: DAPAGLIFLOZIN PROPANEDIOL 10 MG PO SCH (08:42)
[2022-10-26 08:53] LABS: CALCIUM, SERUM 9.3 mg/dL (8.5-10.1); CARBON DIOXIDE 26 mmol/L (21-32); CHLORIDE 102 mmol/L (98-107); CREATININE 1.9 mg/dL (0.6-1.3); GLUCOSE 95 mg/dL (74-106); POTASSIUM 4.2 mmol/L (3.5-5.1); SODIUM SERUM 136 mmol/L (136-145); UREA NITROGEN, BLOOD 42 mg/dL (7-18)
[2022-10-26 08:59] LABS: ALANINE AMINOTRANSFERASE 25 U/L (12-78); ALBUMIN 3.2 g/dL (3.4-5.0); ALKALINE PHOSPHATASE 88 U/L (46-116); ASPARTATE AMINOTRANSFERASE 23 U/L (15-37); BILIRUBIN,TOTAL 0.4 mg/dL (0.2-1.0); TOTAL PROTEIN, SERUM 7.2 g/dL (6.4-8.2)
--- NOTE | 2022-10-26 09:37 | NUR ---
NEWSPAPER OR PERIODICAL EDITOR NOTES PT/PTT STILL PENDING AT THIS TIME
--- NOTE | 2022-10-26 10:00 | NUR ---
FRONT DESK AUXILIARY NOTES RECEIVED LATEST PTT RESULT, 71.5 SEC, FOLLOWED NON ACS HEPARIN PROTOCOL ORDERED, VERIFIED WITH PHARMACIST NICKI.
[2022-10-26] MEDS: HEPARIN INFUSION/D5W 500 ML IV PRN (12:37)
[2022-10-26] MEDS: OLANZAPINE 10 MG TABLET PO SCH (17:41)
[2022-10-26] MEDS: ATORVASTATIN 40 MG TABLET PO SCH (17:41)
[2022-10-26] MEDS: WARFARIN SODIUM 1 MG TABLET PO SCH (17:43)
[2022-10-26] MEDS: WARFARIN SODIUM 2.5 MG TABLET PO SCH (17:43)
[2022-10-26] MEDS: CEFTRIAXONE 1 G in IV D5W 50 ML IV SCH (17:48)
[2022-10-26] MEDS: WARFARIN SODIUM 2 MG TABLET PO SCH (17:54)
--- NOTE | 2022-10-26 18:41 | NUR ---
MS RN CLOSING NOTES PT SLEEPING AND RESTING COMFORTABLY IN BED. PT IS A/O X 4, RESPONSIVE AND FOLLOWS VERBAL COMMAND. PT IS IN 2L O2 INHALATION VIA NASAL CANNULA W/ NO S & SX OF RESPIRATORY DISTRESS @ THIS TIME. PT IV ACCESS PRESENT ON LEFT FOREARM @22G RUNNING HEPARIN @ 825 UNIT/ML/HR & RIGHT FOREARM SALINE LOCK, PATENT, INTACT AND FLUSHES WELL W/ NO S &S X OF INFILTRATION. PT HANDKERCHIEF SAMPLE CLERK IN PLACE W/ CURRENT READING OF B PACING HR 61 BPM. PT HAS URINAL @ BEDSIDE. PT IS KEPT CLEAN AND DRY. ADMINISTERED MEDICATION PER MD'S ORDER. SAFETY MEASURES IN PLACE. BED IN LOWEST AND LOCKED POSITION. SIDE RAILS UP X 2. BEDSIDE TABLE AND CALL LIGHT IS EASY REACH.BED ALARM IS ON. WILL ENDORSE TO NEXT SHIFT.
[2022-10-26] MEDS: MIRTAZAPINE 45 MG TABLET PO SCH (22:30)
[2022-10-27] VITALS: BP 106/64
[2022-10-27] MEDS: IPRATROPIUM NEB FS 0.5 MG/2.5 ML AMPUL.NEB NEB SCH ×4 (01:56→20:06)
[2022-10-27] MEDS: ALBUTEROL HALF STRENGTH 1.25 MG/3 ML VIAL.NEB NEB SCH ×4 (01:57→20:06)
[2022-10-27 04:00] VITALS: BP 92/50
--- NOTE | 2022-10-27 05:51 | NUR ---
END OF SHIFT REPORT Patient in bed, Alert Oriented x4. Oxygen sat high 90's in 2L NC. VPacing in piping blocker, HR 60's No c/o chest pain. SBP in low 90's Patient denies dizziness, no c/o blurry vision. IV line x2 in RFA and LFA intact. Afebrile, on IV ABx. Bld glucose monitor. On Heparin drip 825 u/hr , 16.5ml/hr. No s/s of bleeding. Next PTT/INR drawn this morning at 0500am, results in process. Plan continue Heparin drip until INR >2, Continue transition to Warfarin. Will endorse to oncoming RN.
[2022-10-27] MEDS: BLOOD SUGAR DIAGNOSTIC 1 EACH STRIP IN SCH ×4 (06:19→21:41)
[2022-10-27] MEDS: INSULIN REGULAR, HUMAN 100 UNIT/ML 3 ML VIAL SQ PRN ×2 (06:20→17:49)
[2022-10-27 07:23] LABS: CALCIUM, SERUM 8.9 mg/dL (8.5-10.1); CARBON DIOXIDE 24 mmol/L (21-32); CHLORIDE 104 mmol/L (98-107); CREATININE 1.6 mg/dL (0.6-1.3); GLUCOSE 95 mg/dL (74-106); POTASSIUM 4.1 mmol/L (3.5-5.1); SODIUM SERUM 136 mmol/L (136-145); UREA NITROGEN, BLOOD 39 mg/dL (7-18)
[2022-10-27 07:30] LABS: ALANINE AMINOTRANSFERASE 25 U/L (12-78); ALBUMIN 2.8 g/dL (3.4-5.0); ALKALINE PHOSPHATASE 74 U/L (46-116); ASPARTATE AMINOTRANSFERASE 22 U/L (15-37); BILIRUBIN,TOTAL 0.2 mg/dL (0.2-1.0); TOTAL PROTEIN, SERUM 6.1 g/dL (6.4-8.2)
--- NOTE | 2022-10-27 07:30 | NUR ---
ALUMINUM SIDING MECHANIC OPENING NOTES RECEIVED PATIENT ON BED RESTING AND A/O X4. ON O2 AT 2LPM VIA NASAL CANNULA TOLERATING WELL. NO SOB NOTED. NOT IN DISTRESS. WITH NO COMPLAINTS OF PAIN AT THIS TIME. ON TELE MONITOR CURRENTLY READING V-PACING AT 65BPM. WITH IV ACCESS AT THE LEFT FOREARM G22 ON HEPARIN DRIP AT 16.5ML/HR INFUSING WELL. SAFETY MEASURES IN PLACED. CALL LIGHT WITHIN REACH. BED ON LOWEST LOCKED POSITION, SIDE RAILS UP X2. WILL CONTINUE TO MONITOR.
[2022-10-27] MEDS: LEVOTHYROXINE SODIUM 112 MCG TABLET PO SCH (07:47)
[2022-10-27] MEDS: ENSURE ENLIVE CHOC 237 ML CAN PO SCH ×3 (08:01→17:50)
--- NOTE | 2022-10-27 08:05 | NUR ---
RN NOTE APTT- 53, PT- 17.1 AND INR- 1.68. NO CHANGE WITH THE DRIP RATE OF HEPARIN PER HEPARIN DRIP PROTOCOL. PTT TO BE CHECKED TOMORROW AT 5AM.
[2022-10-27] MEDS: CARVEDILOL 3.125 MG TABLET PO SCH (09:00)
[2022-10-27] MEDS: AMIODARONE HCL 200 MG TABLET PO SCH ×2 (09:00→17:00)
[2022-10-27] MEDS: DAPAGLIFLOZIN PROPANEDIOL 10 MG PO SCH (09:39)
[2022-10-27] MEDS: MULTIVIT W/MINERALS 1 TAB TABLET PO SCH (09:41)
[2022-10-27] MEDS: DIGOXIN 0.125 MG TABLET PO SCH (09:41)
[2022-10-27] MEDS: TAMSULOSIN 0.4 MG CAP.SR.24H PO SCH (09:41)
[2022-10-27] MEDS: BUPROPION XL 150 MG TAB.ER.24 PO SCH (09:41)
[2022-10-27] MEDS: FINASTERIDE (5 MG) 5 MG TABLET PO SCH (09:41)
[2022-10-27 12:00] VITALS: BP 97/59
[2022-10-27 16:09] VITALS: BP 81/59
[2022-10-27] MEDS: OLANZAPINE 10 MG TABLET PO SCH (17:55)
[2022-10-27] MEDS: WARFARIN SODIUM 5 MG TABLET PO SCH (17:55)
[2022-10-27] MEDS: ATORVASTATIN 40 MG TABLET PO SCH (17:55)
[2022-10-27] MEDS: CEFTRIAXONE 1 G in IV D5W 50 ML IV SCH (18:18)
[2022-10-27] MEDS: HEPARIN INFUSION/D5W 500 ML IV PRN (18:22)
--- NOTE | 2022-10-27 19:22 | NUR ---
CIVIL DESIGN SPECIALIST CLOSING NOTES PATIENT ON BED RESTING AND A/O X4. ON O2 AT 2LPM VIA NASAL CANNULA TOLERATING WELL. NO SOB NOTED. NOT IN DISTRESS. WITH NO COMPLAINTS OF PAIN AT THIS TIME. ON TELE MONITOR CURRENTLY READING V-PACING AT 61BPM. WITH IV ACCESS AT THE LEFT FOREARM G22 ON HEPARIN DRIP AT 16.5ML/HR INFUSING WELL. DUE MEDS GIVEN. NEW IV LINE REINSERTED AT THE RIGHT POSTERIOR FOREARM G22 TKO, PATENT AND INTACT. SAFETY MEASURES IN PLACED. CALL LIGHT WITHIN REACH. BED ON LOWEST LOCKED POSITION, SIDE RAILS UP X2. WILL ENDORSE TO NEXT SHIFT FOR MARGARITO..
[2022-10-27 20:00] VITALS: BP_SYST 124; BP_SYST 129; BP_DIAS 46
[2022-10-27] MEDS: MIRTAZAPINE 45 MG TABLET PO SCH (21:42)
[2022-10-28] MEDS: IPRATROPIUM NEB FS 0.5 MG/2.5 ML AMPUL.NEB NEB SCH ×4 (00:39→19:21)
[2022-10-28] MEDS: ALBUTEROL HALF STRENGTH 1.25 MG/3 ML VIAL.NEB NEB SCH ×4 (00:40→19:21)
--- NOTE | 2022-10-28 05:52 | NUR ---
CLOSING NOTES: ALERT AND ORIENTATED X4 COOPERATIVE SLEPT THRU THE NIGHT HEPARIN GTT RIGHT F/A 16.5 ML HR / 825 UNITS PTT PT/INR TO BE DRAWN THIS AM NO BLEEDING GUMS MOUTH URINE NOTED NO SOB THIS 12 HOURS NO LABORED BREATHING
[2022-10-28 06:16] LABS: ALANINE AMINOTRANSFERASE 30 U/L (12-78); ALBUMIN 2.9 g/dL (3.4-5.0); ALKALINE PHOSPHATASE 72 U/L (46-116); ASPARTATE AMINOTRANSFERASE 24 U/L (15-37); BILIRUBIN,TOTAL 0.3 mg/dL (0.2-1.0); CARBON DIOXIDE 27 mmol/L (21-32); CHLORIDE 104 mmol/L (98-107); CREATININE 1.6 mg/dL (0.6-1.3); GLUCOSE 97 mg/dL (74-106); POTASSIUM 4.5 mmol/L (3.5-5.1); SODIUM SERUM 139 mmol/L (136-145); TOTAL PROTEIN, SERUM 6.1 g/dL (6.4-8.2); UREA NITROGEN, BLOOD 32 mg/dL (7-18)
[2022-10-28] MEDS: BLOOD SUGAR DIAGNOSTIC 1 EACH STRIP IN SCH ×4 (06:18→21:55)
--- NOTE | 2022-10-28 07:25 | NUR ---
ms rn received patient, awake,alert,oriented x4, not in any form of distress, heparin drip running at 825 units/hr, 16ml/hour, at left arm, no fever, no nausea,denies pain at this time, w/ ptt result received, no change of heparin drip at this time,will monitor patient.
--- NOTE | 2022-10-28 08:50 | NUR ---
ms banks breakfast served,due meds given,tolerated well.
[2022-10-28] MEDS: AMIODARONE HCL 200 MG TABLET PO SCH ×2 (09:00→17:00)
[2022-10-28] MEDS: CARVEDILOL 3.125 MG TABLET PO SCH (09:00)
[2022-10-28] MEDS: BUPROPION XL 150 MG TAB.ER.24 PO SCH (09:31)
[2022-10-28] MEDS: TAMSULOSIN 0.4 MG CAP.SR.24H PO SCH (09:32)
[2022-10-28] MEDS: MULTIVIT W/MINERALS 1 TAB TABLET PO SCH (09:32)
[2022-10-28] MEDS: FINASTERIDE (5 MG) 5 MG TABLET PO SCH (09:32)
[2022-10-28] MEDS: LEVOTHYROXINE SODIUM 112 MCG TABLET PO SCH (09:32)
[2022-10-28] MEDS: ENSURE ENLIVE CHOC 237 ML CAN PO SCH ×3 (09:33→18:42)
[2022-10-28] MEDS: DIGOXIN 0.125 MG TABLET PO SCH (09:38)
[2022-10-28 09:45] VITALS: BP 101/55
[2022-10-28] MEDS: DAPAGLIFLOZIN PROPANEDIOL 10 MG PO SCH (09:46)
--- NOTE | 2022-10-28 11:00 | NUR ---
ms rn was seen by dr. butt w/ orders made and carried out.
[2022-10-28 15:50] VITALS: BP 95/47
--- NOTE | 2022-10-28 18:00 | NUR ---
ms rn no distress noted, blood sugar monitored, will continue plan of care,all needs attended.
[2022-10-28] MEDS: ATORVASTATIN 40 MG TABLET PO SCH (18:40)
[2022-10-28] MEDS: OLANZAPINE 10 MG TABLET PO SCH (18:40)
[2022-10-28] MEDS: WARFARIN SODIUM 5 MG TABLET PO SCH (18:43)
[2022-10-28] MEDS: CEFTRIAXONE 1 G in IV D5W 50 ML IV SCH (18:45)
[2022-10-28] MEDS: MIRTAZAPINE 45 MG TABLET PO SCH (21:49)
[2022-10-28] MEDS: HEPARIN INFUSION/D5W 500 ML IV PRN (23:55)
[2022-10-29] MEDS: IPRATROPIUM NEB FS 0.5 MG/2.5 ML AMPUL.NEB NEB SCH ×4 (01:09→19:03)
[2022-10-29] MEDS: ALBUTEROL HALF STRENGTH 1.25 MG/3 ML VIAL.NEB NEB SCH ×4 (01:09→19:03)
--- NOTE | 2022-10-29 05:12 | NUR ---
CLOSING NOTES: ALERT AND ORIENTATED X4 PLEASANT AND COOPERATIVE USING A URINAL VOID YELLOW URINE HEP GTT AT 16.5 ML/H 825 UNITS /HR LAST INR 1.67 NEXT INR WILL BE THIS AM ON THE SR COMMUNITY MANAGER HE IS 100% PACED UNDERLINE RHYTHM AFIB O2 2L SATS 97%
[2022-10-29 06:34] LABS: CARBON DIOXIDE 25 mmol/L (21-32); CHLORIDE 103 mmol/L (98-107); CREATININE 1.6 mg/dL (0.6-1.3); GLUCOSE 96 mg/dL (74-106); POTASSIUM 4.6 mmol/L (3.5-5.1); SODIUM SERUM 137 mmol/L (136-145); UREA NITROGEN, BLOOD 28 mg/dL (7-18)
[2022-10-29] MEDS: BLOOD SUGAR DIAGNOSTIC 1 EACH STRIP IN SCH ×4 (06:36→22:00)
[2022-10-29 06:53] LABS: ALANINE AMINOTRANSFERASE 41 U/L (12-78); ALKALINE PHOSPHATASE 76 U/L (46-116); ASPARTATE AMINOTRANSFERASE 27 U/L (15-37); BILIRUBIN,TOTAL 0.3 mg/dL (0.2-1.0); TOTAL PROTEIN, SERUM 6.2 g/dL (6.4-8.2)
--- NOTE | 2022-10-29 07:20 | NUR ---
MS RN RECEIVED ON BED, AWAKE,ALERT,ORIENTED X,NOT IN ANY FORM OF DISTRESS,RESPIRATIONS EVEN AND UNLABORED,ON O2 ,2 LITERS W/ ADEQUATE SATURATION, DENIES PAIN AT THIS TIME, HEPARIN DRIP AT RIGHT FOREARM, 825UNITS/HOUR, 16.5ML/HR.RECEIVED COAG RESULTS, NO CHANGE OF HEPARIN RATE PER LEVEL PROTOCOL, ALL NEEDS ATTENDED, WILL MONITOR PATIENT.
[2022-10-29] MEDS: LEVOTHYROXINE SODIUM 112 MCG TABLET PO SCH (07:41)
[2022-10-29 08:00] VITALS: BP 87/40
[2022-10-29] MEDS: ENSURE ENLIVE CHOC 237 ML CAN PO SCH ×3 (08:01→17:57)
[2022-10-29] MEDS: BUPROPION XL 150 MG TAB.ER.24 PO SCH (08:27)
[2022-10-29] MEDS: FINASTERIDE (5 MG) 5 MG TABLET PO SCH (08:27)
[2022-10-29] MEDS: MULTIVIT W/MINERALS 1 TAB TABLET PO SCH (08:27)
[2022-10-29] MEDS: TAMSULOSIN 0.4 MG CAP.SR.24H PO SCH (08:27)
[2022-10-29] MEDS: DAPAGLIFLOZIN PROPANEDIOL 10 MG PO SCH (08:28)
[2022-10-29] MEDS: CARVEDILOL 3.125 MG TABLET PO SCH (09:00)
[2022-10-29] MEDS: AMIODARONE HCL 200 MG TABLET PO SCH ×2 (09:00→17:00)
[2022-10-29] MEDS: DIGOXIN 0.125 MG TABLET PO SCH (09:00)
--- NOTE | 2022-10-29 09:00 | NUR ---
ms banks breakfast served,due meds given,tolerated well.
[2022-10-29 16:00] VITALS: BP 104/61
[2022-10-29] MEDS: INSULIN REGULAR, HUMAN 100 UNIT/ML 3 ML VIAL SQ PRN (17:58)
--- NOTE | 2022-10-29 18:00 | NUR ---
ms rn on bed, no distress, no change in heparin rate, no distress noted, will continue for current plan of care.
--- NOTE | 2022-10-29 18:11 | NUR ---
RECEIVED PATIENT ON 2LNC SATURATIONS AT 99%. ORDERED HHN TXS SHERRY WELL WITH NO ADVERSE REACTION NOTED. NO SOB NOTED.
[2022-10-29] MEDS: OLANZAPINE 10 MG TABLET PO SCH (19:06)
[2022-10-29] MEDS: ATORVASTATIN 40 MG TABLET PO SCH (19:06)
[2022-10-29] MEDS: CEFTRIAXONE 1 G in IV D5W 50 ML IV SCH (19:07)
--- NOTE | 2022-10-29 19:07 | NUR ---
RT Pt recvd awake and alert on 2 lpm NC, no SOB or respiratory distress noted at this time, Clear diminished breathsounds bilaterally, Neb tx given and blair well with no adverse reaction noted.
[2022-10-29] MEDS: WARFARIN SODIUM 5 MG TABLET PO SCH (19:08)
[2022-10-29 20:00] VITALS: BP 108/65
--- NOTE | 2022-10-29 21:22 | NUR ---
PRODUCTION CONTROL SCHEDULER OPENING NOTES; RECEIVED PATIENT AWAKE IN BED, BE DIN LOW POSITION, CALL LIGHTS WITHIN REACH, NO COMPLAIN OF PAIN AND DISCOMFORT AT THIS TIME, ON O2 INHALATION AT 2LPM SATURATING WELL, PATIENT ON TELE MONITOR- V PACED-61, NO SYMPTOMS WAS OBSERVED, ON HEPARIN DRIP AT CURRENTLY AT 825ML ON 16.5ML/HR INFUSING WELL MOST RECENT APTT LEVEL AT 58.8, NO BLEEDING WAS OBSERVED, PATIENT KEPT CLEAN AND DRY ALL NEEDS MET WILL CONTINUE TO MONITOR
[2022-10-29] MEDS: MIRTAZAPINE 45 MG TABLET PO SCH (21:49)
--- NOTE | 2022-10-29 22:04 | NUR ---
RN NOTES: BLOOD SUGAR-100/ NO INSULIN GIVEN PER SLIDING SCALE.
[2022-10-30] VITALS: BP 106/60
[2022-10-30] MEDS: IPRATROPIUM NEB FS 0.5 MG/2.5 ML AMPUL.NEB NEB SCH ×3 (02:00→12:39)
[2022-10-30] MEDS: ALBUTEROL HALF STRENGTH 1.25 MG/3 ML VIAL.NEB NEB SCH ×3 (02:00→12:39)
[2022-10-30 06:03] LABS: CARBON DIOXIDE 23 mmol/L (21-32); CHLORIDE 103 mmol/L (98-107); CREATININE 1.5 mg/dL (0.6-1.3); GLUCOSE 100 mg/dL (74-106); POTASSIUM 4.3 mmol/L (3.5-5.1); SODIUM SERUM 136 mmol/L (136-145); UREA NITROGEN, BLOOD 31 mg/dL (7-18)
[2022-10-30 06:08] LABS: ALANINE AMINOTRANSFERASE 38 U/L (12-78); ALKALINE PHOSPHATASE 73 U/L (46-116); ASPARTATE AMINOTRANSFERASE 29 U/L (15-37); BILIRUBIN,TOTAL 0.3 mg/dL (0.2-1.0); TOTAL PROTEIN, SERUM 6.3 g/dL (6.4-8.2)
--- NOTE | 2022-10-30 07:00 | NUR ---
RN NOTES: HEPARIN INFUSION DONE LEVEL: PT-21.4, PTT-70.9, INR-2.[address] PELAYO ORDER UNTIL INR>2, NO BLEEDING WAS OBSERVED, PATIENT REAMINS ORIENTED, CN ERIN AWARE, WILL CONTINUE TO MONITOR.
[2022-10-30] MEDS: BLOOD SUGAR DIAGNOSTIC 1 EACH STRIP IN SCH ×3 (07:30→17:10)
--- NOTE | 2022-10-30 07:36 | NUR ---
RN NOTES: BLOOD SUGAR-94/ NO INSULIN GIVEN PER SLIDING SCALE.
--- NOTE | 2022-10-30 07:45 | NUR ---
FONDANT COOKER OPENING NOTES: RECEIVED PATIENT ASLEEP, EASILY ROUSED A/O X4. ABLE TO MAKE NEEDS KNOWN. DENIES PAIN AT THIS TIME. ON O2 AT 2LPM VIA NC, NO S/S OF SOB. TELE MONITOR- READS V PACING, HR= 61. IV ACCESS AT L FA #[id number], PATENT, INTACT, SL. ALL SAFETY MEASURES IN PLACE, CALL LIGHT AND TABLE WITHIN REACH, PT AMBULATES TO BR, WILL CONT WITH PLAN OF CARE DURING SHIFT.
--- NOTE | 2022-10-30 07:55 | NUR ---
POLICE CLERK CLOSING NOTES: PATIENT AWAKE IN BED, BED IN LOW POSITION, CALL LIGHTS WITHIN REACH, NO COMPLAIN OF PAIN AND DISCOMFORT AT THIS TIME, ON O2 INHALATION AT 2LPM SATURATING WELL, PATIENT IS A/O X4 ABLE TO MAKE NEEDS KNOWN, ON TELE MONITOR- [id number] NO SYMPTOMS WAS OBSERVED, LFA#[id number] WITH ONGOING HEPARIN DRIP AT 16.5ML/HR COMPLETED, MOST RECENT PARAMETERS RESULT, PT-21.4, INR-2.13, PTT-70.9, INR >2, NO BLEEDING WAS OBSERVED, [facility] MTZ WAS AWARE, PATIENT KEPT CLEAN AND DRY, ALL NEEDS MET ENDORSE TO INCOMING SHIFT.
[2022-10-30] MEDS ORDERED: DIGO125T PO (08:09)
[2022-10-30] MEDS ORDERED: CARV3.122 PO (08:09)
[2022-10-30] MEDS ORDERED: LEVO112T7 PO (08:09)
[2022-10-30] MEDS ORDERED: AMIO200T5 PO (08:09)
[2022-10-30] MEDS ORDERED: FINA5TAB11 PO (08:09)
[2022-10-30] MEDS ORDERED: WARF5TAB8 PO (08:09)
[2022-10-30] MEDS ORDERED: DAPA10TA PO (08:09)
[2022-10-30] MEDS: ENSURE ENLIVE CHOC 237 ML CAN PO SCH ×3 (08:59→17:10)
[2022-10-30 09:00] VITALS: BP 121/83
[2022-10-30] MEDS: FINASTERIDE (5 MG) 5 MG TABLET PO SCH (09:00)
[2022-10-30] MEDS: CARVEDILOL 3.125 MG TABLET PO SCH (09:00)
[2022-10-30] MEDS ORDERED: AMIODARONE HCL 200 MG TABLET PO SCH (09:00)
[2022-10-30] MEDS: TAMSULOSIN 0.4 MG CAP.SR.24H PO SCH (09:01)
[2022-10-30] MEDS: DIGOXIN 0.125 MG TABLET PO SCH (09:01)
[2022-10-30] MEDS: BUPROPION XL 150 MG TAB.ER.24 PO SCH (09:01)
[2022-10-30] MEDS: MULTIVIT W/MINERALS 1 TAB TABLET PO SCH (09:01)
[2022-10-30] MEDS: DAPAGLIFLOZIN PROPANEDIOL 10 MG PO SCH (09:02)
[2022-10-30] MEDS: LEVOTHYROXINE SODIUM 112 MCG TABLET PO SCH (09:02)
[2022-10-30] MEDS: INSULIN REGULAR, HUMAN 100 UNIT/ML 3 ML VIAL SQ PRN (11:33)
[2022-10-30] MEDS: WARFARIN SODIUM 5 MG TABLET PO SCH (17:00)
[2022-10-30] MEDS: OLANZAPINE 10 MG TABLET PO SCH (18:00)
[2022-10-30] MEDS: ATORVASTATIN 40 MG TABLET PO SCH (18:00)
--- NOTE | 2022-10-30 18:05 | NUR ---
RN DC NOTES: PT STABLE FOR DC, VITALS WNL. DC DOCS, BELONGINGS AND INSTRUCTIONS REVIEWED WITH PT, ADDRESSES QUESTIONS, VERBALIZED UNDERSTANDING AND SIGNED DOCS. IV ACCESS, TELE MONITOR AND ID BAND REMOVED. PT LEFT UNIT VIA GURNEY, TRANSPORTATION IS [facility], UNIT #[id number].
== END 2022-10-30 18:10 | disposition home health service (06) | DRG 280 ==
LOC: ER 23:24 → TELE 10-23 08:19
PROVIDERS: ADMIT Nurse Practitioner Acute Care; ATTEND Internal Medicine
DX: I13.0 Hypertensive heart and chronic kidney disease with heart failure and stage 1 through stage 4 chronic kidney disease, or unspecified chronic kidney disease (principal); I21.A1 Myocardial infarction type 2; I50.33 Acute on chronic diastolic (congestive) heart failure; J15.9 Unspecified bacterial pneumonia; N17.0 Acute kidney failure with tubular necrosis; J44.0 Chronic obstructive pulmonary disease with (acute) lower respiratory infection; J44.1 Chronic obstructive pulmonary disease with (acute) exacerbation; J90 Pleural effusion, not elsewhere classified; E11.22 Type 2 diabetes mellitus with diabetic chronic kidney disease; I25.5 Ischemic cardiomyopathy; Z20.822 Contact with and (suspected) exposure to COVID-19; I25.10 Atherosclerotic heart disease of native coronary artery without angina pectoris; N40.0 Benign prostatic hyperplasia without lower urinary tract symptoms; Z95.810 Presence of automatic (implantable) cardiac defibrillator; Z95.1 Presence of aortocoronary bypass graft; Z95.2 Presence of prosthetic heart valve; Z87.891 Personal history of nicotine dependence; Z79.899 Other long term (current) drug therapy; Z79.01 Long term (current) use of anticoagulants; E78.5 Hyperlipidemia, unspecified; E03.9 Hypothyroidism, unspecified; D63.8 Anemia in other chronic diseases classified elsewhere; I48.91 Unspecified atrial fibrillation; N18.9 Chronic kidney disease, unspecified; R79.1 Abnormal coagulation profile; Z86.59 Personal history of other mental and behavioral disorders
CPT/HCPCS: 36415; 71045-TC; 76770-TC; 80048-TC; 80053-TC; 80061-TC; 81001; 82962-TC; 83735-TC; 83880; 84100-TC; 84443-TC; 84484-TC; 85025-TC; 85610-TC; 85730-TC; 87081-TC; 93307-TC; 94799-TC; A4223; C9803; G0378; J0696; J1644; J1650; J1815; J1940; J7040; J7050; J7060